=== PATIENT | male | born 1980 | race Two or more races ===

== ENCOUNTER 2023-01-17 14:03 | Emergency (ER) | payer OTHER ==
[~2023-01-17] VITALS: Ht 175.3 cm; Wt 83.0 kg
--- NOTE | 2023-01-17 14:10 | NUR ---
[id number] FOR GENERALIZED WEAKNESS S/P HOT YOGA
[2023-01-17] MEDS ORDERED: IV NS 0.9% 1,000 ML BAG IV ONE (15:00)
--- NOTE | 2023-01-17 15:15 | NUR ---
IV LINE RIGHT AC 20 G
--- NOTE | 2023-01-17 15:16 | NUR ---
BLOOD SAMPLE OBTAINED SENT TO LAB
[2023-01-17 15:35] LABS: BASOPHILS # (AUTO) 0.1 K/uL (0.0-0.2); BASOPHILS % (AUTO) 0.4 % (0.0-2.0); EOSINOPHILS % (AUTO) 1.1 % (0.0-6.0); HEMATOCRIT 45 % (39-51); HEMOGLOBIN 14.9 g/dL (13.5-17.5); LYMPHOCYTES # (AUTO) 1.1 K/uL (0.8-4.8); LYMPHOCYTES % (AUTO) 8.1 % (20.0-44.0); MEAN CORPUSCULAR HGB CONC 33 g/dl (31.0-36.0); MEAN CORPUSCULAR VOLUME 89 fL (80-96); MONOCYTES # (AUTO) 0.8 K/uL (0.1-1.30); MONOCYTES % (AUTO) 5.7 % (2.0-12.0); NEUTROPHILS # (AUTO) 11.5 K/uL (1.8-8.9); NEUTROPHILS % (AUTO) 84.7 % (43.0-81.0); PLATELET COUNT (AUTO) 244 K/uL (150-450); RED BLOOD CELL COUNT(AUTO) 5.07 MIL/uL (4.5-6.0); WHITE BLOOD COUNT (AUTO) 13.6 K/uL (4.3-11.0)
[2023-01-17 15:54] LABS: CALCIUM, SERUM 9.6 mg/dL (8.5-10.1); CREATININE 1.1 mg/dL (0.6-1.3); POTASSIUM 2.9 mmol/L (3.5-5.1)
[2023-01-17] MEDS ORDERED: POTA20TA83 PO (17:19)
[2023-01-17] MEDS ORDERED: POTASSIUM CHLORIDE 20 MEQ TAB.PRT.SR PO ONE ×2 (17:30→17:35)
--- NOTE | 2023-01-17 17:45 | NUR ---
medicated as order ,
--- NOTE | 2023-01-17 17:51 | NUR ---
IV removed. Catheter intact and site benign. Pressure and 4x4 applied to site. No bleeding noted.
[2023-01-17 17:52] VITALS: BP 118/81
--- NOTE | 2023-01-17 17:52 | NUR ---
Patient discharged to home in stable condition. Written and verbal after care instructions given. Patient verbalizes understanding of instruction.
== END 2023-01-17 17:52 | disposition home or self-care (01) ==
LOC: ER 14:05
DX: E87.6 Hypokalemia (principal); Z60.2 Problems related to living alone
CPT/HCPCS: 99284; 96360; 93005; 85025; 80048; 82550; 36415; 82962; J7030